=== PATIENT | male | born 1980 | race Caucasian/White ===

== ENCOUNTER 2023-04-24 07:49 | Outpatient (OUT) | payer OTHER, SELFPAY ==
--- NOTE | 2023-04-24 | PCN_ITS ---
CARDIAC STRESS TEST Requesting Physician: Edinson Flynn M.D. Procedure Date: 04/24/2023 PERFORMING PROVIDER: Solange Hadley M.D. REASON FOR STRESS TEST: Palpitations, family history. STRESS TEST TYPE: Treadmill stress test. PROTOCOL: Arvind protocol. Resting EKG: Sinus bradycardia, diffuse ST elevation, likely by early report orientation. Resting heart rate: 57 Peak heart rate: 160 Peak maximal heart rate: 89% Resting blood pressure: 130/82 Peak blood pressure: 218/86 Exercise time: 10 minutes 3 seconds Stage reached: 4 Max METS: 13.4 Reason for termination: Target heart rate achieved, fatigue. Symptoms: No symptoms, no chest pain. ST changes: No ST changes meeting the criteria for ischemia. CONCLUSIONS: 1. Patient exercised for 10 minutes 3 seconds. He reached stage 4 and 13.4 METS. 2. Patient had mildly elevated blood pressure at rest with an exaggerated blood pressure response with activity. Peak blood pressure was 218/86. 3. Patient was noted to have upsloping ST depression approximately 1.25 mm. 4. Estrella treadmill score is 4 which portends moderate risk of angiographically significant coronary artery disease and a five year survival rate of 95%. MTDD
--- NOTE | 2023-04-24 08:00 | CA_ITS ---
Patient Name: CATIA ULLOA MR#: [id number] : 1980 Exam Date: 04/24/2023 Ordering Doctor: DR ELIZABETH GOODRICH M.D. ECHOCARDIOGRAM REPORT PROCEDURE: CA ECHO DOPPLER COMPLETE INDICATIONS: Palpitations, family history of heart disease COMPARISON: None. DESCRIPTION: COMPLETE ECHOCARDIOGRAM Real-time transthoracic echocardiography with 2D, M-mode, spectral and color flow Doppler performed. QUALITY: Technical quality was good. 72 , 210#, BSA 2.18 m2 LEFT VENTRICLE: Normal chamber size. Thickened septal wall. LV EF: Global left ventricular systolic function is normal; visually estimated ejection fraction is 60 to 65%. No significant wall motion abnormalities. DIASTOLIC: Normal diastolic function. ATRIAL SEPTUM: Visually appears intact. LEFT ATRIUM: Normal chamber size. RIGHT ATRIUM: Normal chamber size. RIGHT VENTRICLE: Normal chamber size. Normal right ventricular systolic function. TRICUSPID VALVE: Normal mobility and thickness. No stenosis with no regurgitation. Unable to assess right-sided pressures due to lack of measurable tricuspid regurgitation. MITRAL VALVE: Normal mobility and thickness. No evidence of mitral valve stenosis. There is no mitral annular calcification. Trivial mitral regurgitation. AORTIC VALVE: Normal trileaflet appearance. No visible sclerosis. Normal leaflet mobility. No evidence of aortic valve stenosis. No aortic regurgitation. AORTIC ROOT: Normal diameter and appearance. PULMONIC VALVE: Normal thickness and mobility. No stenosis. Trivial regurgitation. PERICARDIUM: No evidence of pericardial effusion. IVC: Collapses with inspirations. IVC is normal in size. CONCLUSION: 1. Global left ventricular systolic function is normal; visually estimated ejection fraction 60 to 65% 2. Normal right ventricular size and systolic function 3. Normal diastolic function 4. No significant valvular abnormalities Adult Echocardiography Procedure Report Left Ventricle LVEDD (3.7 - 5.6 cm): 4.90 cm LVESD (2.2 - 4.0 cm): 3.16 cm LVIVS thickness (0.6 - 1.2 cm): 1.39 cm LVPW thickness (0.5 - 1.0 cm): 1.08 cm e': 0.20 m/s E - e': 3.35 LVOT Max Gradient: 7.88 mm[Hg] LVOT Area (cm2): 1.40 m/s Peak Velocity (LVOT): 1.40 m/s Mean Velocity (LVOT): 0.93 m/s LVOT Diameter 2.37 cm Left Atrium LA Volume Index (2D A2C): 30.10 ml/m2 Left Atrium Systolic Dimension: 4.16 cm Mitral Valve MV E to A Ratio: 0.88 Mitral Valve A-Wave Peak Velocity: 0.76 m/s Mitral Valve E-Wave Peak Velocity: 0.67 m/s Right Ventricle Aorta AO Root Diam: 3.72 cm Ascending Ao Diam: 3.19 cm Aortic Valve AoV Area (Peak Travis): 4.41 cm2, 4.41 cm2 AoV Area (VTI): 4.05 cm2, 4.05 cm2 Peak Velocity(Antegrade Flow): 1.41 m/s Peak Gradient(Antegrade Flow): 7.90 mm[Hg] Mean Velocity(Antegrade Flow): 0.89 m/s Mean Gradient(Antegrade Flow): 3.78 mm[Hg] Velocity Time Integral: 29.69 cm Tricuspid Valve Pulmonic Valve Mean Gradient: 4.35 mm[Hg] Mean Velocity: 1.00 m/s Peak Velocity: 1.24 m/s, 1.24 m/s Peak Gradient: 6.20 mm[Hg], 6.20 mm[Hg] Right Atrium Right Atrium Systolic Pressure: 63.11 ml, 63.11 ml Dictated by: Camilo Lee M.D. on 04/24/2023 at 12:21 Approved by: Camilo Lee M.D. on 04/24/2023 at 12:24
== END 2023-04-24 07:50 | disposition home or self-care (01) ==
LOC: CARD 07:50
PROVIDERS: PCP Family Medicine; Visit Provider Internal Medicine Interventional Cardiology
DX: R00.2 Palpitations (principal); I49.3 Ventricular premature depolarization; R07.89 Other chest pain
CPT/HCPCS: 93017; 93306